=== PATIENT | female | born 1945 ===

== ENCOUNTER → 2018-06-02 06:42 | Outpatient (CLI) | payer OTHER ==
[~2018-06-02 06:42] MED LIST: JOINT HEALTH T1 EACH PO; VITAMIN D34000 UNIT PO
== END | disposition home or self-care (01) ==
LOC: LAB 06:42
DX: D64.89 Other specified anemias (principal); E88.89 Other specified metabolic disorders; D68.8 Other specified coagulation defects; N39.0 Urinary tract infection, site not specified; Z22.322 Carrier or suspected carrier of Methicillin resistant Staphylococcus aureus; E83.42 Hypomagnesemia; E13.69 Other specified diabetes mellitus with other specified complication; E55.9 Vitamin D deficiency, unspecified; Z76.89 Persons encountering health services in other specified circumstances; I49.8 Other specified cardiac arrhythmias

== ENCOUNTER 2018-06-16 05:05 | Day surgery (SDC) | payer OTHER ==
[~2018-06-16 05:05] MED LIST changes: +MULTIVITAMINS1 EAC9 PO
== END 2018-06-16 13:15 | disposition home or self-care (01) ==
LOC: CIR.AMB 05:05
DX: M24.512 Contracture, left shoulder (principal); M65.812 Other synovitis and tenosynovitis, left shoulder; M75.52 Bursitis of left shoulder